=== PATIENT | female | born 2000 | race Asian ===

== ENCOUNTER 2021-02-19 10:42 | Emergency (ER) | payer BC ==
[~2021-02-19] VITALS: Ht 157.5 cm; Wt 55.9 kg
--- NOTE | 2021-02-19 11:15 | NUR ---
PT CONNECTED TO MONITORING. CALL LIGHT IN REACH. MOM AND YOUNGER SISTER AT BEDSIDE. PIV PLACED, LABS DRAWN AND COLLECTED BY [employer].
[2021-02-19 11:21] LABS: BASOPHILS % (AUTO) 0 % (0-1); EOSINOPHILS % (AUTO) 0 % (1-7); LYMPHOCYTES % (AUTO) 8 % (22-44); MEAN CORPUSCULAR HEMOGLOBIN 31.2 pg (27.0-34.8); MEAN CORPUSCULAR HGB CONC 34.3 g/dL (32.4-35.8); MEAN PLATELET VOLUME 8.8 fL (7.4-10.4); MONOCYTES % (AUTO) 6 % (2-9); NEUTROPHILS % (AUTO) 85 % (42-75); PLATELET COUNT 269 x10^3/uL (130-400); RED BLOOD COUNT 4.97 x10^6/uL (3.82-5.3); RED CELL DISTRIBUTION WIDTH 13.2 % (9.6-15.2)
--- NOTE | 2021-02-19 11:24 | NUR ---
PT AMBULATED TO RESTROOM WITH STEADY GAIT TO PROVIDE URINE SAMPLE. UA COLLECTED AND SENT TO LAB. IVF RUNNING.
[2021-02-19] MEDS ORDERED: ACETAMINOPHEN 325 MG TABLET ONE (11:30)
[2021-02-19] MEDS ORDERED: SODIUM CHLORIDE FLUSH 10ML SYR IVF ONE (11:30)
[2021-02-19] MEDS ORDERED: ACETAMINOPHEN 325 MG TABLET PO ONE (11:30)
[2021-02-19] MEDS ORDERED: SODIUM CHLORIDE 0.9% 1,000 ML IV ONE (11:30)
[2021-02-19] MEDS ORDERED: SODIUM CHLORIDE 0.9% 1,000ML IVBOLUS ONE (11:30)
[2021-02-19 11:31] LABS: ALANINE AMINOTRANSFERASE 25 U/L (12-78); ALBUMIN 4.4 g/dL (3.4-5.0); ANION GAP 11 mmol/L (5-15); CALCIUM 9.7 mg/dL (8.5-10.1); CHLORIDE 108 mmol/L (98-107)
[2021-02-19 11:37] LABS: ALKALINE PHOSPHATASE 57 U/L (45-117); BILIRUBIN,TOTAL 0.7 mg/dL (0.2-1.0); T4 (THYROXINE) 11.8 mcg/dL (4.8-13.9); TOTAL PROTEIN 8.5 g/dL (6.4-8.2)
[2021-02-19 11:42] LABS: MICROSCOPIC INDICATED
--- NOTE | 2021-02-19 12:08 | NUR ---
ALL RESULTS ARE BACK AT THIS TIME. CHART UP FOR RECHECK.
--- NOTE | 2021-02-19 12:21 | NUR ---
RECEIVED N/O FOR CTA.
[2021-02-19] MEDS ORDERED: OMNIPAQUE 350 MG/ML, 75ML BOTTLE ONE (13:13)
--- NOTE | 2021-02-19 13:29 | NUR ---
ALL RESULTS ARE BACK AT THIS TIME. CHART UP FOR RECHECK.
[2021-02-19 14:21] VITALS: BP 109/70
== END 2021-02-19 14:25 | disposition home or self-care (01) ==
LOC: ED 13:36
DX: R00.0 Tachycardia, unspecified (principal); R10.12 Left upper quadrant pain
CPT/HCPCS: 36415; 71275; 80053; 81001; 83690; 84436; 84443; 84703; 85025; 85379; 93005; 96360; 96361; 99285; J7030; Q9967